=== PATIENT | female | born 2000 | race Caucasian/White ===

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

== ENCOUNTER 2018-04-22 16:41 | Emergency (ER) | payer OTHER ==
[~2018-04-22] VITALS: Ht 162.6 cm; Wt 40.5 kg
[2018-04-22 16:59] VITALS: BP 130/77
[2018-04-22 17:13] LABS: HEMATOCRIT 39.3 % (36.0-46.0); HEMOGLOBIN 14.7 G/DL (11.9-15.5); MCHC 37.4 G/DL (30.0-36.0); MCV 88.1 FL (83-99); PLATELET COUNT 159 K/uL (156-360); RBC DIS.WIDTH-SD 35.2 % (39-53); RED BLOOD COUNT 4.46 M/uL (3.80-5.20); WHITE BLOOD COUNT 11.8 K/uL (4.1-10.2)
[2018-04-22 17:24] LABS: ALBUMIN 4.9 g/dL (3.2-4.8); CHLORIDE 103 mEq/L (99-109); POTASSIUM 3.9 mEq/L (3.7-5.4); SODIUM 136 mEq/L (136-147)
[2018-04-22 17:26] LABS: GLUCOSE 84 mg/dL (70-99); TOTAL PROTEIN 8.1 g/dL (6.4-8.3)
[2018-04-22 17:28] LABS: TOTAL BILIRUBIN 0.9 mg/dL (0.0-1.0)
[2018-04-22 17:30] LABS: ALKALINE PHOSPHATASE 74 IU/L (3-129); CREATININE 0.7 mg/dL (0.6-1.3); GFR ESTIMATE (CALCULATED) > 59 mL/min/
[2018-04-22 17:31] LABS: AST (GOT) 12 IU/L (2-34); UREA NITROGEN (BUN) 7 mg/dL (9-23)
[2018-04-22 17:33] LABS: ALT (GPT) 10 IU/L (3-49); LIPASE 30 U/L (1.0-51.0)
[2018-04-22 17:38] LABS: APPEARANCE CLEAR ((CLEAR)); BILIRUBIN NEGATIVE; BLOOD NEGATIVE; COLOR YELLOW ((YELLOW)); GLUCOSE (STRIP) NEGATIVE; KETONES 80; LEUKOCYTES NEGATIVE; NITRITE NEGATIVE; PROTEIN (STRIP) NEGATIVE; UCUL ADDED? NO; UROBILINOGEN 0.2 MG/DL (0.2-1.0)
[2018-04-22 17:56] LABS: QUANTITATIVE HCG 127571.1 MIU/ML
[2018-04-22] MEDS ORDERED: ZOFRAN4 MG PO (17:57)
[2018-04-22] MEDS ORDERED: ZOFRAN ODT4 MG PO (18:04)
== END 2018-04-22 18:12 | disposition home or self-care (01) ==
LOC: EME 16:41
PROVIDERS: Physician Assistant
DX: O21.9 Vomiting of pregnancy, unspecified (principal); Z3A.00 Weeks of gestation of pregnancy not specified
CPT/HCPCS: 80053; 81003; 83690; 84702; 85027; 99281; 99284